=== PATIENT | female | born 1990 | race Two or more races ===

== ENCOUNTER 2022-03-14 23:47 | Emergency (ER) | payer MEDICAID ==
[~2022-03-14] VITALS: Ht 144.8 cm; Wt 50.5 kg
[2022-03-14 23:55] VITALS: BP 132/71
--- NOTE | 2022-03-15 00:01 | NUR ---
PT TO LOBBY
[2022-03-15] MEDS ORDERED: IBUPROFEN 800 MG TAB PO ONE (01:10)
[2022-03-15] MEDS ORDERED: LIDOCAINE MPF 1% 10 MG/ML VIAL INJ ONE (01:10)
[2022-03-15] MEDS ORDERED: AMOXICILLIN 500 MG CAP PO ONE (01:10)
[2022-03-15] MEDS ORDERED: AMOX500C25 PO (01:13)
[2022-03-15] MEDS ORDERED: IBUP-1878 PO (01:13)
--- NOTE | 2022-03-15 02:00 | NUR ---
LEFT SIDED FACIAL NUMBNESS X 1HR RAD TO LEFT ARM. REPORTS MOLAR PAIN ON LEFT UPPER SIDE. JUSTIN MAYORGA MADE AWARE, TO SEE PT. NO FACIAL DROOP, NO EXTREMITY ASYMMETRY. PT IS SPEAKING IN CLEAR SENTENCES DENIES HX, RX AND ALLERGIES
[2022-03-15 03:05] VITALS: BP 132/71
--- NOTE | 2022-03-15 03:05 | NUR ---
Patient discharged with v/s stable. Written and verbal after care instructions given and explained. Patient alert, oriented and verbalized understanding of instructions. Ambulatory with steady gait. All questions addressed prior to discharge. ID band removed. Patient advised to follow up with PMD. Rx of AMOXICILLIN, IBUPROFEN given. Patient educated on indication of medication including possible reaction and side effects. Opportunity to ask questions provided and answered.
== END 2022-03-15 03:05 | disposition home or self-care (01) ==
LOC: MED 23:47
DX: S02.5XXA Fracture of tooth (traumatic), initial encounter for closed fracture (principal); Z79.899 Other long term (current) drug therapy; X58.XXXA Exposure to other specified factors, initial encounter; Y93.89 Activity, other specified; Y92.89 Other specified places as the place of occurrence of the external cause; Y99.8 Other external cause status
CPT/HCPCS: 99283; J2001